=== PATIENT | male | born 1980 | race Caucasian/White ===

== ENCOUNTER 2016-10-15 09:21 | Emergency (ER) | payer BC ==
[2016-10-15 09:40] VITALS: BP 162/100
[2016-10-15] MEDS ORDERED: Ibuprofen TAB* 600 MG PO ONE (10:01)
[2016-10-15] MEDS ORDERED: Albuterol 2.5 MG/3 ML NEB.SOL* (0.083%) INH ONE (10:01)
--- NOTE | 2016-10-15 10:02 | UC ---
Respiratory Complaint HPI - HPI Summary HPI Summary: cough, wheezzing, fever, sinus pressure, fatique and chills for 5 days. - History of Current Complaint Chief Complaint: UCGeneralIllness Stated Complaint: FEVER HEADACHE CHILLS Time Seen by Provider: 10/15/16 09:48 Hx Obtained From: Patient Onset/Duration: Sudden Onset, Lasting Days Timing: Constant Severity Initially: Mild Severity Currently: Severe Pain Intensity: 8 Pain Scale Used: 0-10 Numeric Character: Cough: Productive Aggravating Factors: Exertion, Deep Breaths, Recumbent Position Alleviating Factors: Nothing Associated Signs And Symptoms: Positive: Dyspnea, Fever, Chills, Wheezing, Sinus Discomfort - Risk Factors Pulmonary Embolism Risk Factors: Negative Cardiac Risk Factors: Smoking Pseudomonas Risk Factors: Negative Tuberculosis Risk Factors: Negative - Allergies/Home Medications Allergies/Adverse Reactions: Allergies Allergy/AdvReac Type Severity Reaction Status Date / Time No Known Allergies Allergy Verified 10/15/16 09:34 PMH/Surg Hx/FS Hx/Imm Hx Previously Healthy: Yes Endocrine History Of: Denies: Diabetes Cardiovascular History Of: Reports: Hypertension - Not on meds Denies: Pacemaker/ICD Respiratory History Of: Reports: Pneumonia GI/ History Of: Denies: Renal Disease - Surgical History Surgical History: Yes Surgery Procedure, Year, and Place: HERNIA 2010, [facility] SURGERY 13 YEARS AGO - Family History Known Family History: Negative: Cardiac Disease, Hypertension, Diabetes - Social History Alcohol Use: Daily Substance Use Type: None Smoking Status (MU): Heavy Every Day Tobacco Smoker Type: Cigarettes Amount Used/How Often: 1 ppd Length of Time of Smoking/Using Tobacco: 20 yrs Have You Smoked in the Last Year: Yes - Immunization History Most Recent Influenza Vaccination: Apr 2016 Most Recent Tetanus Shot: Unk Review of Systems Constitutional: Fever, Chills, Fatigue Skin: Negative Eyes: Negative ENT: Sore Throat, Ear Ache, Nasal Discharge Respiratory: Shortness Of Breath, Cough Cardiovascular: Negative Gastrointestinal: Negative Genitourinary: Negative Motor: Negative Neurovascular: Negative Musculoskeletal: Negative Neurological: Headache Psychological: Negative All Other Systems Reviewed And Are Negative: Yes Physical Exam Triage Information Reviewed: Yes Appearance: Well-Nourished, Ill-Appearing, Pain Distress Vital Signs: Initial Vital Signs Temp 97.5 F 10/15/16 09:35 Pulse 97 10/15/16 09:35 Resp 18 10/15/16 09:35 BP 162/100 10/15/16 09:35 Pulse Ox 96 10/15/16 09:35 Vital Signs Reviewed: Yes Eye Exam: Normal Eyes: Positive: Conjunctiva Clear ENT: Positive: Pharyngeal erythema, Nasal congestion, Nasal drainage, TM red - left, Muffled/hoarse voice Dental Exam: Normal Neck exam: Normal Neck: Positive: Supple, Nontender, No Lymphadenopathy Respiratory Exam: Normal Respiratory: Positive: Chest non-tender, Lungs clear, Normal breath sounds Cardiovascular Exam: Normal Cardiovascular: Positive: RRR, No Murmur, Pulses Normal Abdominal Exam: Normal Abdomen Description: Positive: Nontender, No Organomegaly, Soft Bowel Sounds: Positive: Present Musculoskeletal Exam: Normal Musculoskeletal: Positive: Strength Intact, ROM Intact, No Edema Neurological Exam: Normal Neurological: Positive: Alert, Muscle Tone Normal Psychological Exam: Normal Skin Exam: Normal UC Diagnostic Evaluation - Laboratory O2 Sat by Pulse Oximetry: 96 Respiratory Course/Dx - Course Course Of Treatment: hx obtained, exam performed, meds reviewed, rapid flu obtained and is positive, neb treatemnt given. talked with patient about follow up with PCP over BP medication and side effects. possibly trying another medication. prescribeptions sent for bronchospasm and wheezing. educated on smoking cessation - Differential Dx/Diagnosis Differential Diagnosis/HQI/PQRI: Bronchitis, CHF, Influenza, Laryngitis, Sinusitis Provider Diagnoses: influenza A. bronchospasm. tobacco abuse Discharge - Discharge Plan Condition: Stable Disposition: HOME Prescriptions: predniSONE TAB* [Deltasone TAB*] 40 mg PO DAILY #10 tab Patient Education Materials: Influenza (ED) Forms: *Work Release Additional Instructions: take the medication as prescribed. Increase your fluid intake and get plenty of rest. follow up with any increasing respiratory symptoms.
== END 2016-10-15 11:05 | disposition home or self-care (01) ==
LOC: UCEAST 09:21
DX: J10.1 Influenza due to other identified influenza virus with other respiratory manifestations (principal); J98.01 Acute bronchospasm; F17.210 Nicotine dependence, cigarettes, uncomplicated
CPT/HCPCS: 87502; 99212; A9270-GY; G0463

== ENCOUNTER 2016-10-20 13:49 | Emergency (ER) | payer BC ==
[2016-10-20 14:07] VITALS: BP 144/95
--- NOTE | 2016-10-20 14:15 | UC ---
Respiratory Complaint HPI - HPI Summary HPI Summary: Continued cough and wheeze after having flu last week---no fevers - History of Current Complaint Chief Complaint: UCRespiratory Stated Complaint: URI Time Seen by Provider: 10/20/16 14:03 Hx Obtained From: Patient Onset/Duration: Gradual Onset, Lasting Days Timing: Constant Pain Intensity: 4 Pain Scale Used: 0-10 Numeric Character: Cough: Nonproductive Aggravating Factors: Deep Breaths Alleviating Factors: Nothing Associated Signs And Symptoms: Positive: Pleuritic Chest Pain, Wheezing, URI, Hoarseness - Allergies/Home Medications Allergies/Adverse Reactions: Allergies Allergy/AdvReac Type Severity Reaction Status Date / Time No Known Allergies Allergy Verified 10/20/16 13:57 PMH/Surg Hx/FS Hx/Imm Hx Previously Healthy: No Endocrine History Of: Denies: Diabetes Cardiovascular History Of: Reports: Hypertension - Not on meds Denies: Pacemaker/ICD Respiratory History Of: Reports: Pneumonia GI/ History Of: Denies: Renal Disease - Surgical History Surgical History: Yes Surgery Procedure, Year, and Place: HERNIA 2010, [facility] SURGERY 13 YEARS AGO - Family History Known Family History: Negative: Cardiac Disease, Hypertension, Diabetes - Social History Occupation: Employed Full-time Lives: With Family Alcohol Use: Daily Substance Use Type: None Smoking Status (MU): Heavy Every Day Tobacco Smoker Type: Cigarettes Amount Used/How Often: 1 ppd Length of Time of Smoking/Using Tobacco: 20 yrs Have You Smoked in the Last Year: Yes Cessation Counseling: Counseled 3+Min - 10 Min - Immunization History Most Recent Influenza Vaccination: Apr 2016 Most Recent Tetanus Shot: Unk Review of Systems Constitutional: Negative Skin: Negative Eyes: Negative ENT: Negative Respiratory: Cough Cardiovascular: Negative Gastrointestinal: Negative Genitourinary: Negative Motor: Negative Neurovascular: Negative Musculoskeletal: Negative Neurological: Negative Psychological: Negative All Other Systems Reviewed And Are Negative: Yes Physical Exam Triage Information Reviewed: Yes Appearance: Well-Appearing, No Pain Distress, Well-Nourished Vital Signs: Initial Vital Signs Temp 98 F 10/20/16 13:58 Pulse 84 10/20/16 13:58 Resp 18 10/20/16 13:58 BP 144/95 10/20/16 13:58 Pulse Ox 98 10/20/16 13:58 Eye Exam: Normal Eyes: Positive: Conjunctiva Clear ENT Exam: Normal ENT: Positive: Normal ENT inspection, Hearing grossly normal, Pharynx normal, TMs normal. Negative: Nasal congestion, Nasal drainage, Tonsillar swelling, Tonsillar exudate, Trismus, Muffled/hoarse voice Dental Exam: Normal Neck exam: Normal Neck: Positive: Supple, Nontender, No Lymphadenopathy Respiratory Exam: Normal Respiratory: Positive: Chest non-tender, No respiratory distress, No accessory muscle use, Wheezing Cardiovascular Exam: Normal Cardiovascular: Positive: RRR, No Murmur, Pulses Normal, Brisk Capillary Refill Abdominal Exam: Normal Musculoskeletal Exam: Normal Musculoskeletal: Positive: Strength Intact, ROM Intact, No Edema Neurological Exam: Normal Neurological: Positive: Alert, Muscle Tone Normal Psychological Exam: Normal Skin Exam: Normal UC Diagnostic Evaluation - Laboratory O2 Sat by Pulse Oximetry: 98 Diagnostic Studies Comment: CXR----COPD Changes Respiratory Course/Dx - Course Course Of Treatment: Nicotine inhalers, prednisone, continue albuterol, nicotine cesation information and support, follow with pcp - Differential Dx/Diagnosis Differential Diagnosis/HQI/PQRI: Asthma, Bronchitis, Exacerbation Of COPD, Influenza Provider Diagnoses: Post viral cough, copd, nicotine dependant Discharge - Discharge Plan Condition: Stable Disposition: HOME Prescriptions: Nicotine Inhaler* 10 mg INH Q2H PRN #1 box PRN Reason: nicotine craving predniSONE TAB* [Deltasone TAB*] 10 mg PO DAILY #20 tab Patient Education Materials: Viral Syndrome (ED), Bronchospasm (ED) Referrals: Partha Lay MD [Primary Care Provider] - If Needed
[2016-10-20] MEDS ORDERED: Albuterol/Ipratropium NEB.SOL* Albuterol 2.5 MG/Ipratropium 0.5 MG 3 ML INH ONE (14:20)
--- NOTE | 2016-10-20 14:52 | RAD ---
INDICATION: Cough and shortness of breath. COMPARISON: There are no prior studies available for comparison. TECHNIQUE: Dual-energy PA and lateral views of the chest were obtained. FINDINGS: The heart is within normal limits in size. Mediastinal and hilar contours appear within normal limits. The lungs are hyperinflated and clear. No pleural effusion is seen. IMPRESSION: FINDINGS SUGGESTIVE OF COPD, NO EVIDENCE FOR ACUTE FINDING.
== END 2016-10-20 15:14 | disposition home or self-care (01) ==
LOC: UCEAST 13:49
DX: R05 Cough (principal); J44.9 Chronic obstructive pulmonary disease, unspecified; F17.210 Nicotine dependence, cigarettes, uncomplicated; Z71.6 Tobacco abuse counseling
CPT/HCPCS: 71020; 99212; A9270-GY; G0463

== ENCOUNTER 2017-07-01 07:21 | Emergency (ER) | payer BC ==
--- NOTE | 2017-07-01 08:28 | UC ---
Respiratory Complaint HPI - HPI Summary HPI Summary: 2 days of cough, chest tightness and wheeze feels like when he had the flu last year - History of Current Complaint Hx Obtained From: Patient Onset/Duration: Gradual Onset - 2 days Timing: Constant Severity Initially: Moderate Severity Currently: Moderate Character: Cough: Nonproductive Aggravating Factors: Nothing Alleviating Factors: Nothing Associated Signs And Symptoms: Positive: Chills, Pleuritic Chest Pain, URI <Ligia Chao - Last Filed: 07/01/17 09:31> <Kerri Chino - Last Filed: 07/01/17 14:02> - History of Current Complaint Chief Complaint: UCRespiratory Stated Complaint: URI Time Seen by Provider: 07/01/17 08:09 - Allergies/Home Medications Allergies/Adverse Reactions: Allergies Allergy/AdvReac Type Severity Reaction Status Date / Time No Known Allergies Allergy Verified 07/01/17 07:37 Home Medications: Home Medications Ibuprofen [Advil] 200 mg PO Q6H PRN 07/01/17 [History Confirmed 07/01/17] Pseudoephedrine-Ibuprofen [Cold & Sinus Relief 30-200 mg] 1 tab PO DAILY PRN [History Confirmed 07/01/17] PMH/Surg Hx/FS Hx/Imm Hx Previously Healthy: Yes - Surgical History Surgical History: Yes Surgery Procedure, Year, and Place: HERNIA 2010, [facility] SURGERY 13 YEARS AGO - Family History Known Family History: Negative: Cardiac Disease, Hypertension, Diabetes - Social History Occupation: Employed Full-time Lives: With Family Alcohol Use: Occasionally Substance Use Type: None Smoking Status (MU): Heavy Every Day Tobacco Smoker Type: Cigarettes Amount Used/How Often: 1 ppd Length of Time of Smoking/Using Tobacco: 20 yrs Have You Smoked in the Last Year: Yes Cessation Counseling: Counseled 3+Min - 10 Min - Immunization History Most Recent Influenza Vaccination: 2016 Most Recent Tetanus Shot: Unk <Ligia Chao - Last Filed: 07/01/17 09:31> Review of Systems Constitutional: Chills, Fatigue Skin: Negative Eyes: Negative ENT: Negative Respiratory: Cough Cardiovascular: Negative Gastrointestinal: Negative Genitourinary: Negative Motor: Negative Neurovascular: Negative Musculoskeletal: Negative Neurological: Negative Psychological: Negative Is Patient Immunocompromised?: No All Other Systems Reviewed And Are Negative: Yes <Ligia Chao - Last Filed: 07/01/17 09:31> Physical Exam Triage Information Reviewed: Yes Appearance: Well-Appearing, No Pain Distress, Well-Nourished Vital Signs: Initial Vital Signs Temp 98.4 F 07/01/17 07:29 Pulse 79 07/01/17 07:29 Resp 16 07/01/17 07:29 BP 134/98 07/01/17 07:29 Pulse Ox 97 07/01/17 07:29 Vital Signs Reviewed: Yes Eye Exam: Normal Eyes: Positive: Conjunctiva Clear ENT Exam: Normal ENT: Positive: Normal ENT inspection, Hearing grossly normal, Pharynx normal, Nasal drainage, TMs normal, Uvula midline. Negative: Tonsillar swelling, Tonsillar exudate, Trismus, Sinus tenderness Dental Exam: Normal Neck exam: Normal Neck: Positive: Supple, Nontender, No Lymphadenopathy Respiratory Exam: Normal Respiratory: Positive: Chest non-tender, No respiratory distress, No accessory muscle use, Wheezing - left upper lobe Cardiovascular Exam: Normal Cardiovascular: Positive: RRR, No Murmur, Pulses Normal, Brisk Capillary Refill Musculoskeletal Exam: Normal Musculoskeletal: Positive: Strength Intact, ROM Intact, No Edema Neurological Exam: Normal Neurological: Positive: Alert, Muscle Tone Normal Psychological Exam: Normal Skin Exam: Normal <Ligia Chao - Last Filed: 07/01/17 09:31> Vital Signs: Initial Vital Signs Temp 98.4 F 07/01/17 07:29 Pulse 79 07/01/17 07:29 Resp 16 07/01/17 07:29 BP 134/98 07/01/17 07:29 Pulse Ox 97 07/01/17 07:29 <Kerri Chino - Last Filed: 07/01/17 14:02> Diagnostic Evaluation - Laboratory O2 Sat by Pulse Oximetry: 97 - Radiology Xray Interpretation: No Acute Changes Radiology Interpretation Completed By: Radiologist <Ligia Chao - Last Filed: 07/01/17 09:31> Re-Evaluation - Re-Evaluation First Eval Change: Improved <Ligia Chao - Last Filed: 07/01/17 09:31> Respiratory Course/Dx - Course Course Of Treatment: nicotine ceseation information, mdi instructions/albuterol , zithromax follow with pcp prn, suggested he get flu vaccine - Differential Dx/Diagnosis Provider Diagnoses: Nicotine dependent, viral bronchitis <Ligia Chao - Last Filed: 07/01/17 09:31> Discharge <Ligia Chao - Last Filed: 07/01/17 09:31> <Kerri Chino - Last Filed: 07/01/17 14:02> - Discharge Plan Condition: Stable Disposition: HOME Prescriptions: Albuterol HFA INHALER* [Ventolin HFA Inhaler*] 2 puff INH Q4H PRN #1 mdi PRN Reason: cough Azithromycin TAB* [Zithromax TAB (Z-YODIT) 250 mg #6 tabs] 2 tab PO .TODAY, THEN 1 DAILY #1 yodit Patient Education Materials: How to Stop Smoking (ED), How to Use a Metered- Dose Inhaler (ED), Acute Bronchitis (ED) Referrals: Partha Lay MD [Primary Care Provider] - If Needed Attestation Statement User Type: Provider - I was available for consult. This patient was seen by the [facility]. The patient was not presented to, seen by, or examined by me. -Jonny <Kerri Chino - Last Filed: 07/01/17 14:02>
[2017-07-01] MEDS ORDERED: Ipratropium 0.5MG/2.5ML NEB* 0.5 MG/2.5 ML NEB.SOLN INH ONE (08:30)
[2017-07-01] MEDS ORDERED: Albuterol 2.5 MG/3 ML NEB.SOL* (0.083%) INH ONE (08:30)
--- NOTE | 2017-07-01 09:05 | RAD ---
INDICATION: Left upper lobe wheeze. COMPARISON: Comparison is made with a prior chest x-ray study from October 20, 2016. TECHNIQUE: Dual-energy PA and lateral views of the chest were obtained. FINDINGS: The heart is within normal limits in size. Mediastinal and hilar contours appear within normal limits. The lungs are clear. No pleural effusion is present. IMPRESSION: NO EVIDENCE FOR ACTIVE CARDIOPULMONARY DISEASE.
[2017-07-01 09:30] VITALS: BP 123/85
== END 2017-07-01 09:30 | disposition home or self-care (01) ==
LOC: UCEAST 07:21
DX: J20.8 Acute bronchitis due to other specified organisms (principal); F17.210 Nicotine dependence, cigarettes, uncomplicated; R07.9 Chest pain, unspecified
CPT/HCPCS: 71020; 87502; 99212; G0463; J7644